=== PATIENT | female | born 1945 | race Caucasian/White ===

== ENCOUNTER 2021-11-24 12:28 | Outpatient (CLI) | payer MEDICARE, SELFPAY ==
[2021-11-24 09:32] LABS: Vitamin D 25 Hydroxy* 92 ng/mL (30-80)
[2021-11-24 10:08] LABS: Chloride* 105 mmol/L (96-114)
[2021-11-24 10:09] LABS: Albumin* 4.1 g/dL (3.3-5.0)
[2021-11-24 10:10] LABS: Potassium* 4.3 mmol/L (3.6-5.1)
[2021-11-24 10:12] LABS: Alanine Aminotransferase* 31 U/L (4-35); Alkaline Phosphatase* 80 U/L (40-150); Aspartate Amino Transferase* 33 U/L (12-35); Bilirubin Total* 0.6 mg/dL (0.1-1.5); Blood Urea Nitrogen* 18 mg/dL (7-30); Carbon Dioxide* 26 mmol/L (20-32); Cholesterol* 189 mg/dL (90-199); Creatinine* 0.8 mg/dL (0.5-1.5); Estimated Glomerular Filt Rate 77 ml/min; Glucose* 100 mg/dL (60-115); Total Protein* 7.1 g/dL (6.0-8.3); Triglycerides* 149 mg/dL (40-149)
[2021-11-24 10:13] LABS: Calcium* 9.2 mg/dL (8.4-10.6); HDL Cholesterol* 55 mg/dL (>=50); LDL Cholesterol Calculated 104 mg/dL (<100)
[2021-11-25 08:44] LABS: Sodium* 141 mmol/L (135-149)
== END 2021-11-24 12:29 | disposition home or self-care (01) ==
PROVIDERS: PCP Family Medicine; Visit Provider Family Medicine
DX: E78.5 Hyperlipidemia, unspecified (principal); M85.80 Other specified disorders of bone density and structure, unspecified site
CPT/HCPCS: 80053; 80061; 82306

== ENCOUNTER 2021-12-29 12:47 | Outpatient (CLI) | payer MEDICARE, BC, SELFPAY ==
--- NOTE | 2021-12-29 13:00 | CRLHL7_ITS ---
For Patients: As a result of the Century Cures Act, medical imaging exams and procedure reports are released immediately into your electronic medical record. You may view this report before your referring provider. If you have questions, please contact your health care provider. BILATERAL SCREENING MAMMOGRAM WITH COMPUTER-AIDED DETECTION TECHNIQUE: CC and MLO views were obtained. These mammographic images have been obtained using full-field digital technique. These mammographic images were interpreted with the benefit of computer-aided detection. COMPARISON FILM: 12/14/20, 12/02/19, 11/12/18. FINDINGS: There are scattered areas of fibroglandular density IMPRESSION: There is no radiographic evidence for malignancy. ASSESSMENT: BI-RADS Category 1: Negative RECOMMENDATION: Routine screening mammogram in 1 year. A lay language report of this examination will be provided to the patient. Mikaela Guillermo M.D. Diagnostic/Breast Radiologist [email or web address] ATTILA/Dictated by: Mikaela Guillermo MD @ 12/30/2021 8:42:00 AM (Electronically Signed)
== END 2021-12-29 12:48 | disposition home or self-care (01) ==
PROVIDERS: PCP Family Medicine; Visit Provider Family Medicine
DX: Z12.31 Encounter for screening mammogram for malignant neoplasm of breast (principal)
CPT/HCPCS: 77063; 77067

== ENCOUNTER 2023-01-05 14:27 | Outpatient (CLI) | payer MEDICARE, BC, SELFPAY ==
--- NOTE | 2023-01-05 14:40 | CRLHL7_ITS ---
For Patients: As a result of the Century Cures Act, medical imaging exams and procedure reports are released immediately into your electronic medical record. You may view this report before your referring provider. If you have questions, please contact your health care provider. BILATERAL SCREENING MAMMOGRAM WITH COMPUTER-AIDED DETECTION TECHNIQUE: CC and MLO views were obtained. These mammographic images have been obtained using full-field digital technique. These mammographic images were interpreted with the benefit of computer-aided detection. COMPARISON FILM: 12/29/21, 12/14/20, 12/02/19. FINDINGS: There are scattered areas of fibroglandular density IMPRESSION: There is no radiographic evidence for malignancy. ASSESSMENT: BI-RADS Category 1: Negative RECOMMENDATION: Routine screening mammogram in 1 year. A lay language report of this examination will be provided to the patient. YING ANTONIO M.D. Diagnostic/Nuclear Medicine Radiologist [email or web address] ALESSIO:[email or web address] Transcribed: 2:41 p.mCary parkinson/Dictated by: Ying Antonio MD @ 01/09/2023 8:26:00 AM (Electronically Signed)
== END 2023-01-05 14:28 | disposition home or self-care (01) ==
LOC: MAMMO 14:28
PROVIDERS: PCP Family Medicine; Visit Provider Student in an Organized Health Care Education/Training Program
DX: Z12.31 Encounter for screening mammogram for malignant neoplasm of breast (principal)
CPT/HCPCS: 77067

== ENCOUNTER 2023-01-08 10:00 | Outpatient (RCR) | payer MEDICARE, BC, SELFPAY | END 2023-05-08 23:59 | disposition home or self-care (01) | PROVIDERS: PCP Family Medicine; Visit Provider Student in an Organized Health Care Education/Training Program | DX: N39.46 Mixed incontinence (principal); Z51.89 Encounter for other specified aftercare | CPT/HCPCS: 97110; 97140; 97162 ==

== ENCOUNTER 2024-01-07 11:15 | Outpatient (CLI) | payer MEDICARE, BC, SELFPAY ==
--- NOTE | 2024-01-07 11:30 | CRLHL7_ITS ---
For Patients: As a result of the Cures Act, medical imaging exams and procedure reports are released immediately into your electronic medical record. You may view this report before your referring provider. If you have questions, please contact your health care provider. BILATERAL SCREENING MAMMOGRAM WITH COMPUTER-AIDED DETECTION AND TOMOSYNTHESIS TECHNIQUE: CC and MLO views were obtained. These mammographic images have been obtained using full-field digital technique. These mammographic images were interpreted with the benefit of computer-aided detection. Breast Tomosynthesis was used in this interpretation. COMPARISON FILM: 01/05/23, 12/29/21, 12/14/20. FINDINGS: There are scattered areas of fibroglandular density IMPRESSION: There is no radiographic evidence for malignancy. ASSESSMENT: BI-RADS Category 1: Negative RECOMMENDATION: Routine screening mammogram in 1 year. A lay language report of this examination will be provided to the patient. Talha Martinez M.D. Diagnostic Radiologist [email or web address] BÁRBARA/[email or web address] Transcribed: 1:58 p.mCary parkinson/Dictated by: Talha Martinez MD @ 01/14/2024 9:46:00 AM (Electronically Signed)
== END 2024-01-07 11:16 | disposition home or self-care (01) ==
LOC: MAMMO 11:16
PROVIDERS: PCP Student in an Organized Health Care Education/Training Program; Visit Provider Student in an Organized Health Care Education/Training Program
DX: Z12.31 Encounter for screening mammogram for malignant neoplasm of breast (principal)
CPT/HCPCS: 77063; 77067

== ENCOUNTER 2024-08-06 07:09 | Outpatient (CLI) | payer MEDICARE, BC, SELFPAY ==
--- NOTE | 2024-08-06 08:35 | P.ANES_ITS ---
Anesthesia Charges Start Date/Time Anesthesia Start Date: 08/06/24 Anesthesia Start Time: 08:03 Stop Date/Time Anesthesia Stop Date: 08/06/24 Anesthesia Stop Time: 08:31 Summary Extremes of Age - Over 70 or under 1: CELLOPHANER Coding CPT Codes CPT Codes: ANES LWR INTST NDSC NOS - 26181 ([id number]) P3 - PATIENT W/SEVERE SYS DISEASE, QX - CELLOPHANER SVC W/ MD MED DIRECTION, QK - PERINATAL SPECIALIST 2-4 CNCRNT ANES PROC Additional Codes: Summary - Extremes of Age - Over 70 or under 1: CELLOPHANER ([id number])
--- NOTE | 2024-08-06 08:35 | W.ANESCHARGE ---
Anesthesia Charges Start Date/Time Anesthesia Start Date: 08/06/24 Anesthesia Start Time: 08:03 Stop Date/Time Anesthesia Stop Date: 08/06/24 Anesthesia Stop Time: 08:31 Summary Extremes of Age - Over 70 or under 1: CARE COORDINATOR Coding CPT Codes CPT Codes: ANES LWR INTST NDSC NOS - 36411 ([id number]) P3 - PATIENT W/SEVERE SYS DISEASE, QX - CARE COORDINATOR SVC W/ MD MED DIRECTION, QK - SENIOR QUANTITY SURVEYOR 2-4 CNCRNT ANES PROC Additional Codes: Summary - Extremes of Age - Over 70 or under 1: CARE COORDINATOR ([id number])
--- NOTE | 2024-08-06 09:33 | P.ANES_ITS ---
Anesthesia Charges Start Date/Time Anesthesia Start Date: 08/06/24 Anesthesia Start Time: 08:03 Stop Date/Time Anesthesia Stop Date: 08/06/24 Anesthesia Stop Time: 08:31 Summary Extremes of Age - Over 70 or under 1: MDA Coding CPT Codes CPT Codes: ANES LWR INTST NDSC NOS - 02738 ([id number]) QK - [employer] SUPERVISOR 2-4 CNCRNT ANES PROC, QX - RISK ANALYST SVC W/ MD MED DIRECTION, P3 - PATIENT W/SEVERE SYS DISEASE Additional Codes: Summary - Extremes of Age - Over 70 or under 1: MDA ([id number])
== END 2024-08-06 07:10 | disposition home or self-care (01) ==
LOC: OP CLINIC 07:12
PROVIDERS: PCP Student in an Organized Health Care Education/Training Program; Visit Provider Internal Medicine Gastroenterology
DX: Z12.11 Encounter for screening for malignant neoplasm of colon (principal); Z86.0101 Personal history of adenomatous and serrated colon polyps; D12.4 Benign neoplasm of descending colon; D12.8 Benign neoplasm of rectum
CPT/HCPCS: 00811; 45385; 88305; 99100; J2704

== ENCOUNTER 2024-09-24 13:20 | Outpatient (CLI) | payer MEDICARE, BC, SELFPAY | END 2024-09-24 13:21 | disposition home or self-care (01) | LOC: NFLDREF 09-27 17:49 | PROVIDERS: PCP Student in an Organized Health Care Education/Training Program; Referring Provider Student in an Organized Health Care Education/Training Program | DX: R30.0 Dysuria (principal); N39.0 Urinary tract infection, site not specified; R35.0 Frequency of micturition | CPT/HCPCS: 87086 ==

== ENCOUNTER 2025-01-07 08:01 | Outpatient (CLI) | payer MEDICARE, BC, SELFPAY ==
--- NOTE | 2025-01-07 08:15 | CRLHL7_ITS ---
For Patients: As a result of the Century Cures Act, medical imaging exams and procedure reports are released immediately into your electronic medical record. You may view this report before your referring provider. If you have questions, please contact your health care provider. INDICATION: BILATERAL SCREENING MAMMOGRAM, ASYMPTOMATIC 79 Y/O FEMALE COMPARISON: 01/07/2024, 01/05/2023, 12/29/2021 TECHNIQUE: Digital mammogram in CC and MLO projections including computer-aided detection (CAD) and tomosynthesis. BREAST COMPOSITION: There are scattered areas of fibroglandular density. FINDINGS: No suspicious findings. ASSESSMENT: BI-RADS 1 Negative RECOMMENDATION: Annual screening mammogram. A lay language report of this examination will be provided to the patient. Dictated by: Mikaela Guillermo MD @ 01/08/2025 13:43:54 (Electronically Signed)
== END 2025-01-07 08:02 | disposition home or self-care (01) ==
LOC: MAMMO 08:01
PROVIDERS: PCP Student in an Organized Health Care Education/Training Program; Visit Provider Student in an Organized Health Care Education/Training Program
DX: Z12.31 Encounter for screening mammogram for malignant neoplasm of breast (principal)
CPT/HCPCS: 77063; 77067